=== PATIENT | female | born 1980 | race Two or more races ===

== ENCOUNTER 2023-12-15 15:38 | Emergency (ER) | payer MEDICAID ==
[~2023-12-15] VITALS: Ht 149.9 cm; Wt 54.4 kg
[2023-12-15] MEDS ORDERED: BIMA2.5D5 EACHEYE (17:48)
[2023-12-15] MEDS ORDERED: TIMO5SOL11 EACHEYE (17:48)
[2023-12-15 17:58] VITALS: BP 120/70; TEMP 98.3; O2SAT 100
== END 2023-12-15 17:59 | disposition home or self-care (01) ==
LOC: ER 15:44
DX: N64.4 Mastodynia (principal); H92.03 Otalgia, bilateral; Z76.0 Encounter for issue of repeat prescription